=== PATIENT | male | born 1995 | race Caucasian/White ===

== ENCOUNTER 2022-11-08 21:29 | Emergency (ER) | payer SELFPAY ==
[~2022-11-08 21:29] MED LIST: Iopamidol 370 76% 100 ML VIAL ONE
[2022-11-08] MEDS ORDERED: Morphine 4 MG/ML VIAL ONE (21:58)
[2022-11-08 22:14] LABS: Hemoglobin 14.9 g/dL (13.5-17.5); Mean Corpuscular HGB CONC 35.6 g/dL (32.0-36.0); Mean Corpuscular Hemoglobin 31.2 pg (27.0-33.0); Mean Corpuscular Volume 87.8 fl (81.2-95.1); Platelet Count 258 10x3/uL (150-450); RBC Distribution Width 11.9 % (11.5-14.5); Red Blood Cell (RBC) Count 4.77 10x6/uL (4.32-5.72); White Blood Cell (WBC) Count 8.5 10x3/uL (3.5-10.5)
[2022-11-08 22:22] LABS: ALT (SGPT) 21 U/L (8-55); AST (SGOT) 23 U/L (5-34); Acetaminophen Less than 10.0 mcg/mL (10.0-30.0); Albumin 4.6 g/dL (3.5-5.0); Alcohol Less than 10 mg/dL (Less than 10); Alkaline Phosphatase 46 U/L (40-110); Anion Gap 15 mmol/L (10-20); BUN (Urea Nitrogen) 15 mg/dL (8.9-20.6); Bilirubin, Total 0.6 mg/dL (0.2-1.2); Calc. Creatinine Clearance 0 mL/min (70-130); Calcium 9.2 mg/dL (7.8-10.44); Carbon Dioxide 21 mmol/L (22-29); Chloride 105 mmol/L (98-107); Estimated GFR 74; Glucose 185 mg/dL (70-105); Potassium 3.3 mmol/L (3.5-5.1); Protein, Total 7.6 g/dL (6.0-8.3); Salicylate Less than 8.0 mg/dL (15.0-30.0); Sodium 138 mmol/L (136-145)
[2022-11-08] MEDS ORDERED: Lorazepam 2 MG/ML VIAL ONE (22:28)
[2022-11-08 22:32] LABS: Actual Bicarbonate (HCO3v) 23 mEq/L (22-28); Base Excess -1.3 mEq/L (-2.0 to +3.0); Calcium, Ionized (venous) 1.12 mmol/L (1.16-1.32); Chloride (VBG) 104 mmol/L (98-106); Hemoglobin (Hb) 14.5 g/dL (13.2-17.3); Potassium (VBG) 3.98 mmol/L (3.70-5.30); Puncture Site Other Site; RapidComm Collect By Lab; Sodium 138.7 mmol/L (133-146); pH (venous) 7.42 (7.32-7.43)
[2022-11-08 23:22] LABS: MDiff Complete? YES
[2022-11-08 23:27] LABS: Band 4 % (5-11); Lymphocytes 51 % (21-51); Monocytes 8 % (0-10); Neutrophil 37 % (42-75)
[2022-11-08 23:28] LABS: Anisocytosis SLIGHT = 6-15 cells (100X) (0-5/hpf); Microcytosis SLIGHT = 6-15 cells (100X) (0-5/hpf); Platelet Morphology Comment Appears Adequate
[2022-11-08 23:43] LABS: Bilirubin Neg (Negative); Blood, Urine Negative (Negative); Clarity Slightly Cloudy (Clear); Glucose, Urine (Dipstick) Normal (Negative); Ketone, Urine Negative (Negative); Leukocyte Negative (Negative); Nitrite Negative (Negative); Protein, Urine (Dipstick) Negative (Neg-Trace); Urobilinogen Normal mg/dL (Less than 2)
[2022-11-08 23:51] LABS: Amphetamine Not Detected (NotDetected); Barbiturates Screen Not Detected (NotDetected); Benzodiazepine Screen Not Detected (NotDetected); Cocaine Metabolite Screen Not Detected (NotDetected); Methadone Not Detected (NotDetected); Methamphetamine Not Detected (NotDetected); Opiate Screen Detected (NotDetected); Oxycodone Screen Not Detected (NotDetected); Phencyclidine (PCP) Not Detected (NotDetected); THC/Cannabinoid Screen Detected (NotDetected); Tricyclic Screen Not Detected (NotDetected)
== END 2022-11-09 01:46 | disposition home or self-care (01) ==
LOC: CSHERS 21:29
DX: R07.9 Chest pain, unspecified (principal); F17.290 Nicotine dependence, other tobacco product, uncomplicated
CPT/HCPCS: 71045; 71275; 80053; 80306; 80307; 81003; 82805; 83605; 83690; 84484; 85025; 85379; 93005; 96361; 96374; 96375; J2060; J2270; Q9967

== ENCOUNTER 2023-08-31 10:27 | Emergency (ER) | payer SELFPAY ==
[2023-08-31] MEDS ORDERED: Lidocaine 1% (PF) 30 ML VIAL ONE (11:29)
[2023-08-31] MEDS ORDERED: Morphine 4 MG/ML VIAL ONE (11:43)
[2023-08-31] MEDS ORDERED: Ketorolac Tromethamine 30 MG/ML VIAL ONE (11:43)
[2023-08-31] MEDS ORDERED: CEFAZOLIN 1 GM VIAL ONE (11:44)
[2023-08-31] MEDS ORDERED: Boostrix 0.5 ML (Tdap) VIAL (>/=7 yrs of age) ONE (11:44)
[2023-08-31] MEDS ORDERED: Sterile Water 10 ML ONE (11:46)
[2023-08-31] MEDS ORDERED: Bacitracin 1 PK ONE (13:11)
== END 2023-08-31 13:28 | disposition home or self-care (01) ==
LOC: CSHERS 10:27
DX: S61.411A Laceration without foreign body of right hand, initial encounter (principal); S61.511A Laceration without foreign body of right wrist, initial encounter; Z20.822 Contact with and (suspected) exposure to COVID-19; F17.290 Nicotine dependence, other tobacco product, uncomplicated; W22.8XXA Striking against or struck by other objects, initial encounter
CPT/HCPCS: 12002; 90471; 90715; 96372; J0690; J1885; J2001; J2270

== ENCOUNTER 2023-09-13 19:07 | Emergency (ER) | payer SELFPAY | END 2023-09-13 20:17 | disposition home or self-care (01) | LOC: CSHERS 19:07 | DX: S61.512D Laceration without foreign body of left wrist, subsequent encounter (principal); Z48.02 Encounter for removal of sutures; F17.210 Nicotine dependence, cigarettes, uncomplicated; F17.290 Nicotine dependence, other tobacco product, uncomplicated; X58.XXXD Exposure to other specified factors, subsequent encounter ==